=== PATIENT | female | born 1950 | race African-American/Black ===

== ENCOUNTER 2016-10-10 13:31 | Inpatient (IN) | payer MEDICARE, OTHER ==
[~2016-10-10] VITALS: Ht 162.6 cm; Wt 51.3 kg
--- NOTE | 2016-10-10 14:00 | NUR ---
IV ACCESS STARTED.
--- NOTE | 2016-10-10 14:15 | NUR ---
CALLED NURSING SUP. FOR TELE BED
[2016-10-10] MEDS ORDERED: MEMA21CA PO (14:29)
[2016-10-10] MEDS ORDERED: CHOL100044 PO (14:29)
[2016-10-10] MEDS ORDERED: QUET25TA PO (14:29)
[2016-10-10 14:58] LABS: BASOPHILS % (AUTO) 0.7 % (0.0-2.0); EOSINOPHILS % (AUTO) 0.2 % (0.0-6.0); HEMATOCRIT 41 % (33-45); HEMOGLOBIN 13.4 g/dL (11.5-14.8); LYMPHOCYTES # (AUTO) 2.2 /CMM (0.8-4.8); LYMPHOCYTES % (AUTO) 32.2 % (20.0-44.0); MEAN CORPUSCULAR HEMOGLOBIN 28 PG (26.0-33.0); MEAN CORPUSCULAR HGB CONC 33 g/dl (31.0-36.0); MEAN CORPUSCULAR VOLUME 86 fL (82-100); MONOCYTES # (AUTO) 0.5 /CMM (0.1-1.30); MONOCYTES % (AUTO) 8.1 % (2.0-12.0); NEUTROPHILS % (AUTO) 58.8 % (43.0-81.0); PLATELET COUNT (AUTO) 202 /CMM (150-450); RDW COEFFICIENT OF VARIATION 12.7 (11.5-15.0); RED BLOOD CELL COUNT(AUTO) 4.78 MIL/uL (4.0-5.2); WHITE BLOOD COUNT (AUTO) 6.7 K/uL (4.3-11.0)
[2016-10-10] MEDS ORDERED: IV NS 0.9% 1,000 ML BAG IV ONE (15:00)
--- NOTE | 2016-10-10 15:00 | NUR ---
PT TAKEN TO CT.
[2016-10-10 15:07] LABS: CALCIUM, SERUM 9.3 mg/dL (8.5-10.1); CARBON DIOXIDE 31 mmol/L (21-32); CHLORIDE 105 mmol/L (98-107); CREATININE 1.1 mg/dL (0.6-1.3); GLUCOSE 99 mg/dL (74-106); POTASSIUM 4.2 mmol/L (3.5-5.1); SODIUM SERUM 141 mmol/L (136-145); UREA NITROGEN, BLOOD 21 mg/dL (7-18)
[2016-10-10 15:12] LABS: PROTHROMBIN TIME 10.4 SECS (9.5-12.7)
[2016-10-10 15:15] LABS: TROPONIN I < 0.017 ng/mL (0.00-0.056)
[2016-10-10 15:17] LABS: ALANINE AMINOTRANSFERASE 39 U/L (12-78); ALBUMIN 3.8 g/dL (3.4-5.0); ALKALINE PHOSPHATASE 64 U/L (46-116); ASPARTATE AMINOTRANSFERASE 25 U/L (15-37); BILIRUBIN,DIRECT 0.1 mg/dL (0.0-0.2); BILIRUBIN,TOTAL 0.6 mg/dL (0.2-1.0); TOTAL PROTEIN, SERUM 8.8 g/dL (6.4-8.2)
[2016-10-10 15:38] LABS: THYROID STIMULATING HORMONE 1.583 uIU/mL (0.358-3.74)
--- NOTE | 2016-10-10 15:46 | NUR ---
URINE SAMPLE OBTAINED, SENT.
[2016-10-10 15:49] LABS: APPEARANCE,URINE Clear (CLEAR); BILIRUBIN,URINE Negative (NEGATIVE); BLOOD, URINE Negative Ery/uL (NEGATIVE); COLOR,URINE Dark (YELLOW); KETONES,URINE Negative (NEGATIVE); LEUKOCYTE ESTERASE ,URINE Negative (NEGATIVE); NITRITE, URINE Negative (NEGATIVE); PH,URINE 5.5 (5.0-8.0); PROTEIN,URINE Trace mg/dl (NEGATIVE); UGLUCOSE Negative (NEGATIVE); UROBILINOGEN,URINE 0.2 EU/dL (0.2)
--- NOTE | 2016-10-10 16:02 | NUR ---
REPORT GIVEN TO LUCINDA ASTORGA FOR TELE 308-2.
[2016-10-10 16:07] LABS: BACTERIA,URINE Few /HPF (None Seen); RBC,URINE 0-2 /HPF (0-2); SQUAMOUS EPITHELIAL CELL,UR Moderate /HPF (None Seen)
--- NOTE | 2016-10-10 16:13 | NUR ---
SORIN PAGED, LINA COTTO ASSISTANT AT SURGERY
[2016-10-10] MEDS ORDERED: CEFTRIAXONE 1GM BAG (ER ONLY) 1 GM/50 ML PIGGYBACK IV ONE (16:30)
[2016-10-10 17:00] VITALS: BP 117/82
--- NOTE | 2016-10-10 18:39 | NUR ---
RN NOTES RECEIVED PT FROM ER. PT IS AWAKE AND STABLE. PT IS NONVERBAL. NO S/S OF SOB, DISTRESS OR PAIN. PT ARRIVES WITH DAUGHTER AND SON AT BEDSIDE. PT IS ON THE TELE MONITOR SHOWING SINUS RHYTHM. IV ACCESS IS ON THE LEFT FOREARM, 20G, SL. SAFETY MEASURES IN PLACE. WILL ENDORSE TO GUEST RELATIONS REPRESENTATIVE FOR SAW.
[2016-10-10] MEDS ORDERED: Z GUARD REMEDY 2 OZ OINT TP PRN (19:00)
[2016-10-10] MEDS ORDERED: ONDANSETRON HCL/PF 4 MG/2 ML VIAL IVP PRN (19:00)
[2016-10-10] MEDS ORDERED: ACETAMINOPHEN 325 MG TABLET PO PRN (19:00)
--- NOTE | 2016-10-10 19:30 | NUR ---
RN NOTES Received patient in bed, awale and alert, family at bedside, no c/o pain or discomfort at this time. Discussed POC with patient and family, no concerns at this time. Will continue to monitor.
[2016-10-10 20:00] VITALS: BP 117/76
[2016-10-10] MEDS: QUETIAPINE FUMARATE 25 MG TABLET PO SCH (21:20)
[2016-10-10] MEDS: IV NS 0.9% 1,000 ML IV PRN (21:30)
[2016-10-11] VITALS: BP 124/58
[2016-10-11 03:06] LABS: BASOPHILS % (AUTO) 0.2 % (0.0-2.0); EOSINOPHILS % (AUTO) 0.4 % (0.0-6.0); HEMATOCRIT 33 % (33-45); HEMOGLOBIN 11.3 g/dL (11.5-14.8); LYMPHOCYTES # (AUTO) 2.7 /CMM (0.8-4.8); LYMPHOCYTES % (AUTO) 41.1 % (20.0-44.0); MEAN CORPUSCULAR HEMOGLOBIN 29 PG (26.0-33.0); MEAN CORPUSCULAR HGB CONC 34 g/dl (31.0-36.0); MEAN CORPUSCULAR VOLUME 86 fL (82-100); MONOCYTES # (AUTO) 0.6 /CMM (0.1-1.30); MONOCYTES % (AUTO) 9.8 % (2.0-12.0); NEUTROPHILS # (AUTO) 3.2 /CMM (1.8-8.9); NEUTROPHILS % (AUTO) 48.5 % (43.0-81.0); PLATELET COUNT (AUTO) 166 /CMM (150-450); RDW COEFFICIENT OF VARIATION 13.3 (11.5-15.0); RED BLOOD CELL COUNT(AUTO) 3.88 MIL/uL (4.0-5.2); WHITE BLOOD COUNT (AUTO) 6.6 K/uL (4.3-11.0)
[2016-10-11 03:46] LABS: ALBUMIN 2.9 g/dL (3.4-5.0); BILIRUBIN,TOTAL 0.4 mg/dL (0.2-1.0); CALCIUM, SERUM 8.3 mg/dL (8.5-10.1); CREATININE 0.7 mg/dL (0.6-1.3); MAGNESIUM 1.6 mg/dL (1.8-2.4); POTASSIUM 3.5 mmol/L (3.5-5.1); TOTAL PROTEIN, SERUM 6.9 g/dL (6.4-8.2)
[2016-10-11 04:00] VITALS: BP 134/82
[2016-10-11 04:50] LABS: THYROID STIMULATING HORMONE 2.316 uIU/mL (0.358-3.74)
--- NOTE | 2016-10-11 07:00 | NUR ---
RN CLOSING NOTES No significant change in condition during shift. No c/o pain or discomfort. Daughter slept beside the patient. Reminded daughter that she cannot sleep on the bed, verbalized understanding. Will continue to monitor.
--- NOTE | 2016-10-11 07:30 | NUR ---
PHLEBOTOMIST MEDICAL LAB ASSISTANT NOTES PATIENT IN BED, ALERT AND ORIENTED, NO DISTRESS NOTED, TELE MONITOR SHOWS A.FLUTTER, ASYMPTOMATIC, DAUGHTER AT BEDSIDE, PIV ON RFA PATENT AND INTACT, ALL NEEDS ATTENDED, CALL LIGHT WITHIN REACH, WILL CONTINUE TO MONITOR.
[2016-10-11 08:00] VITALS: BP 118/76
[2016-10-11] MEDS: MEMANTINE HCL 5 MG TABLET PO SCH ×2 (08:42→16:23)
[2016-10-11] MEDS: CHOLECALCIFEROL 1,000 UNIT TABLET (VIT D3) PO SCH (08:42)
[2016-10-11] MEDS: IV NS 0.9% 1,000 ML IV PRN (08:54)
[2016-10-11 11:42] VITALS: BP 117/66
[2016-10-11] MEDS: Magnesium 1GM/D5W 100ML PREMIX 100 ML IV SCH ×2 (12:01→13:08)
--- NOTE | 2016-10-11 14:00 | NUR ---
LAP CUTTER NOTES PATIENT SEEN BY DR. LINA COTTO, NO NEW ORDER AT THIS TIME.
[2016-10-11 15:46] VITALS: BP 100/56
[2016-10-11] MEDS ORDERED: CEFTRIAXONE 1 G in IV D5W 50 ML IV SCH (17:00)
--- NOTE | 2016-10-11 18:25 | NUR ---
CHRISTMAS TREE GRADER NOTES PATIENT IN BED, ALERT BUT NON-VERBAL, NO DISTRESS NOTED, BREATHING EVEN AND UNLABORED, TURNED AND REPOSITIONED, PM CARE RENDERED, ALL NEEDS ATTENDED AND MET, PIV ON LFA PATENT AND INTACT, IVF INFUSING AT 75ML/HR AND TOLERATING WELL, CALL LIGHT WITHIN REACH, SAFETY MEASURES IN PLACED, FAMILY AT BEDSIDE, WILL ENDORSE TO 4TH GRADE TEACHER FOR SAW.
--- NOTE | 2016-10-11 19:25 | NUR ---
SENIOR SYSTEMS ARCHITECT OPENING NOTES: RECEIVED PT IN BED WITH FAMILY MEMBERS AT BEDSIDE. PT IS A/OX1 AND IS NON-VERBAL, OPENS EYES. NO DISTRESS NOTED AT THIS TIME. BREATHING EVEN AND UNLABORED. PIV ON LFA PATENT AND INTACT, IVF INFUSING AT 75ML/HR AND TOLERATING WELL, CALL LIGHT WITHIN REACH, SAFETY MEASURES IN PLACED. WILL CONTINUE TO MONITOR PT.
[2016-10-11 20:00] VITALS: BP 152/88
[2016-10-11] MEDS: QUETIAPINE FUMARATE 25 MG TABLET PO SCH (21:32)
[2016-10-12] VITALS: BP 94/63
[2016-10-12] MEDS: IV NS 0.9% 1,000 ML IV PRN (00:36)
[2016-10-12 06:00] VITALS: BP 123/63
[2016-10-12 06:36] LABS: BASOPHILS % (AUTO) 0.3 % (0.0-2.0); EOSINOPHILS # (AUTO) 0.1 /CMM (0.0-0.7); EOSINOPHILS % (AUTO) 1.7 % (0.0-6.0); HEMATOCRIT 30 % (33-45); HEMOGLOBIN 10.1 g/dL (11.5-14.8); LYMPHOCYTES # (AUTO) 2.5 /CMM (0.8-4.8); LYMPHOCYTES % (AUTO) 52.6 % (20.0-44.0); MEAN CORPUSCULAR HEMOGLOBIN 29 PG (26.0-33.0); MEAN CORPUSCULAR HGB CONC 34 g/dl (31.0-36.0); MEAN CORPUSCULAR VOLUME 87 fL (82-100); MONOCYTES # (AUTO) 0.4 /CMM (0.1-1.30); MONOCYTES % (AUTO) 8.6 % (2.0-12.0); NEUTROPHILS # (AUTO) 1.8 /CMM (1.8-8.9); NEUTROPHILS % (AUTO) 36.8 % (43.0-81.0); PLATELET COUNT (AUTO) 151 /CMM (150-450); RDW COEFFICIENT OF VARIATION 13.1 (11.5-15.0); RED BLOOD CELL COUNT(AUTO) 3.46 MIL/uL (4.0-5.2); WHITE BLOOD COUNT (AUTO) 4.8 K/uL (4.3-11.0)
[2016-10-12 07:03] LABS: CALCIUM, SERUM 7.5 mg/dL (8.5-10.1); CREATININE 0.7 mg/dL (0.6-1.3); MAGNESIUM 1.9 mg/dL (1.8-2.4); PHOSPHORUS 3.1 mg/dL (2.5-4.9); POTASSIUM 3.6 mmol/L (3.5-5.1)
--- NOTE | 2016-10-12 07:20 | NUR ---
CUSTOMER ASSOCIATE NOTES PATIENT IN BED, ALERT BUT NON-VERBAL, NO DISTRESS NOTED, BREATHING EVEN AND UNLABORED, TURNED AND REPOSITIONED, NEEDS ATTENDED AND MET, PIV ON LFA PATENT AND INTACT, IVF INFUSING AT 75ML/HR AND TOLERATING WELL, CALL LIGHT WITHIN REACH, SAFETY MEASURES IN PLACED, FAMILY AT BEDSIDE, WILL CONTINUE TO MONITOR.
--- NOTE | 2016-10-12 07:25 | NUR ---
STRETCH MACHINE OPERATOR CLOSING NOTES: ALL NEEDS WERE ATTENDED AND ANTICIPATED FOR. PT IS IN BED RESTING. DAUGHTER AT BEDSIDE. PT IS A/OX1, OPENS EYES, AND IS NON-VERBAL. NO DISTRESS NOTED AT THIS TIME. BREATHING EVEN AND UNLABORED. PT IS ON TELE MONITOR AND IS SR 75. PIV ON LFA PATENT AND INTACT AND IS BEING INFUSED WITH NS 75ML/HR AND TOLERATING WELL. CALL LIGHT WITHIN PT'S REACH. PT KEPT CLEAN, DRY, AND COMFORTABLE. SAFETY MEASURES IN PLACE. ENDORSED TO AM NURSE FOR SAW.
[2016-10-12 07:32] VITALS: BP 123/63
[2016-10-12] MEDS: MEMANTINE HCL 5 MG TABLET PO SCH (08:58)
[2016-10-12] MEDS: CHOLECALCIFEROL 1,000 UNIT TABLET (VIT D3) PO SCH (08:58)
[2016-10-12] MEDS ORDERED: CEPH-569 PO (12:43)
[2016-10-12 13:45] VITALS: BP 127/84
--- NOTE | 2016-10-12 14:20 | NUR ---
BRAKE REPAIRER PATIENT ALERT AND ORIENTED X1, NON-VERBAL, RECEIVED DISCHARGE ORDER FROM DR. LINA COTTO, DAUGHTER RECEIVED DISCHARGE INSTRUCTIONS AND VERBALIZED UNDERSTANDING, INSTRUCTED TO RETURN TO PCP IN 1 WEEK AND TO TAKE MEDICATION PRESCRIBED, PRESCRIPTION FOR KEFLEX GIVEN TO THE PATIENT'S DAUGHTER, SKIN ASSESSMENT COMPLETED, DRY AND INTACT, PATIENT RECEIVED SKIN CARE, BED BATH, PIV ON LFA REMOVED, BELONGINGS RECONCILED, NO VALUABLES ONLY CLOTHES, RECEIVED SIGNATURES FROM DAUGHTER, AND LEFT THE FACILITY VIA PRIVATE CAR, ASSISTED BY HIGH PRESSURE OPERATOR VIA WHEELCHAIR. PATIENT LEFT IN STABLE CONDITION.
== END 2016-10-12 14:20 | disposition home or self-care (01) | DRG 689 ==
LOC: ER 13:33 → TELE 15:52
PROVIDERS: ADMIT Nurse Practitioner Acute Care; ATTEND Nurse Practitioner Acute Care
DX: N39.0 Urinary tract infection, site not specified (principal); G93.41 Metabolic encephalopathy; Z79.899 Other long term (current) drug therapy; E86.0 Dehydration; G30.0 Alzheimer's disease with early onset; F02.80 Dementia in other diseases classified elsewhere, unspecified severity, without behavioral disturbance, psychotic disturbance, mood disturbance, and anxiety; J32.0 Chronic maxillary sinusitis; I67.2 Cerebral atherosclerosis; Z86.19 Personal history of other infectious and parasitic diseases
CPT/HCPCS: 36415; 70450-TC; 71010-TC; 80048-TC; 80053-TC; 80061-TC; 80076-TC; 81000-TC; 82962-TC; 83605-TC; 83735-TC; 84100-TC; 84443-TC; 84484-TC; 85025-TC; 85730-TC; 87040-TC; 87086-TC; 93307-TC; A4606; J0696; J3475; J7030; J7060; Z7610

== ENCOUNTER 2017-09-24 20:09 | Emergency (ER) | payer MEDICARE, OTHER ==
[~2017-09-24] VITALS: Ht 160 cm; Wt 45.4 kg
[~2017-09-24 20:09] MED LIST: CEPH-569 PO; CHOL100044 PO; MEMA21CA PO; QUET25TA PO
--- NOTE | 2017-09-24 20:30 | NUR ---
BIB DAUGHTER. DAUGHTER STATES THAT "HER MOTHER IS ACTING A BIT WEAKER THAN USUAL, SHE HAS ALZHEIMERS AND NORMALLY DOES NOT SPEAK AND IS UNCOOPERATIVE." PT AA/OX0. NO TRAUMA NOTED FROM HEAD TO TOE. AMBULATED TO HOSPITAL BED WITH ASSISTANCE FROM DAUGHTER. ABLE TO MOVE ALL EXTREMITIES. VSS. NAD. AWAITING MD BARNES.
--- NOTE | 2017-09-24 20:55 | NUR ---
LAB AT BEDSIDE
--- NOTE | 2017-09-24 21:02 | NUR ---
EKG AT BEDSIDE.
[2017-09-24 21:04] LABS: BASOPHILS % (AUTO) 0.5 % (0.0-2.0); EOSINOPHILS % (AUTO) 0.4 % (0.0-6.0); HEMATOCRIT 42 % (33-45); HEMOGLOBIN 14.2 g/dL (11.5-14.8); LYMPHOCYTES # (AUTO) 2.5 /CMM (0.8-4.8); LYMPHOCYTES % (AUTO) 42.9 % (20.0-44.0); MEAN CORPUSCULAR HEMOGLOBIN 29 PG (26.0-33.0); MEAN CORPUSCULAR HGB CONC 34 g/dl (31.0-36.0); MEAN CORPUSCULAR VOLUME 87 fL (82-100); MONOCYTES # (AUTO) 0.4 /CMM (0.1-1.30); MONOCYTES % (AUTO) 6.7 % (2.0-12.0); NEUTROPHILS % (AUTO) 49.5 % (43.0-81.0); PLATELET COUNT (AUTO) 152 /CMM (150-450); RDW COEFFICIENT OF VARIATION 12.5 (11.5-15.0); RED BLOOD CELL COUNT(AUTO) 4.82 MIL/uL (4.0-5.2); WHITE BLOOD COUNT (AUTO) 5.9 K/uL (4.3-11.0)
[2017-09-24 21:15] LABS: CALCIUM, SERUM 9.2 mg/dL (8.5-10.1); CARBON DIOXIDE 28 mmol/L (21-32); CHLORIDE 103 mmol/L (98-107); CREATININE 0.7 mg/dL (0.6-1.3); GLUCOSE 90 mg/dL (74-106); POTASSIUM 3.7 mmol/L (3.5-5.1); SODIUM SERUM 138 mmol/L (136-145); UREA NITROGEN, BLOOD 16 mg/dL (7-18)
[2017-09-24 21:19] LABS: INR 0.95 (0.85-1.15)
[2017-09-24 21:23] LABS: TROPONIN I < 0.017 ng/mL (0.00-0.056)
[2017-09-24 21:31] LABS: ALANINE AMINOTRANSFERASE 36 U/L (12-78); ALKALINE PHOSPHATASE 78 U/L (46-116); ASPARTATE AMINOTRANSFERASE 25 U/L (15-37); B-TYPE NATRIURETIC PEPTIDE 151 PG/ML (0-125); BILIRUBIN,DIRECT 0.1 mg/dL (0.0-0.2); BILIRUBIN,TOTAL 0.3 mg/dL (0.2-1.0); TOTAL PROTEIN, SERUM 9.3 g/dL (6.4-8.2)
--- NOTE | 2017-09-24 21:34 | NUR ---
X RAY AT BEDSIDE
[2017-09-24 22:27] LABS: APPEARANCE,URINE CLOUDY (CLEAR); BILIRUBIN,URINE NEGATIVE (NEGATIVE); BLOOD, URINE TRACE Ery/uL (NEGATIVE); COLOR,URINE YELLOW (YELLOW); KETONES,URINE NEGATIVE (NEGATIVE); LEUKOCYTE ESTERASE ,URINE 1+ (NEGATIVE); NITRITE, URINE POSITIVE (NEGATIVE); PROTEIN,URINE NEGATIVE (NEGATIVE); UGLUCOSE NEGATIVE (NEGATIVE)
[2017-09-24 22:44] LABS: BACTERIA,URINE Many /HPF (None Seen); RBC,URINE 0-2 /HPF (0-2); SQUAMOUS EPITHELIAL CELL,UR Moderate /HPF (None Seen); WBC,URINE TOO NUMEROUS TO COUN /HPF (0-3)
--- NOTE | 2017-09-24 23:31 | NUR ---
RESTING COMFORTABLY WITH DAUGHTER AT BEDSIDE
--- NOTE | 2017-09-24 23:31 | NUR ---
Patient is resting comfortably in bed with eyes closed. Easily aroused. VSS
[2017-09-24] MEDS ORDERED: CEFTRIAXONE 1 G VIAL ONE (23:52)
[2017-09-25] MEDS ORDERED: CEFTRIAXONE 1 G in IV D5W 50 ML IV ONE ×2
[2017-09-25 00:31] VITALS: BP 144/70
--- NOTE | 2017-09-25 00:32 | NUR ---
Patient discharged to home in stable condition. Written and verbal after care instructions given. Patient verbalizes understanding of instruction. MD DAIGLE PRESICRIPTION GIVEN. IV removed. Catheter intact and site benign. Pressure and 4x4 applied to site. No bleeding noted. AMBULATORY WITH DAUGHTER'S ASSISTANCE UPON DC.
== END 2017-09-25 00:32 | disposition home or self-care (01) ==
LOC: ER 20:11
DX: R53.1 Weakness (principal); F03.90 Unspecified dementia, unspecified severity, without behavioral disturbance, psychotic disturbance, mood disturbance, and anxiety
CPT/HCPCS: 36415; 71045-TC; 80048-TC; 80076-TC; 81000-TC; 83880; 84484-TC; 85025-TC; 85730-TC; 87086-TC; 87186-TC; A4606; J0696; J7060; Z7610

== ENCOUNTER 2018-09-26 17:24 | Emergency (ER) | payer OTHER ==
[~2018-09-26] VITALS: Ht 152.4 cm; Wt 39.0 kg
--- NOTE | 2018-09-26 18:00 | NUR ---
BIB Caregiver "fell/slif off wheelchair this afternoon. Also is not eating like usual. Unresponsive" Patient non-verbal, daughter at bedside. No resp distress. Changed into gown, attached to the monitor.
[2018-09-26] MEDS ORDERED: IV NS 0.9% 1,000 ML BAG IV ONE (18:30)
[2018-09-26 19:03] LABS: BASOPHILS % (AUTO) 0.5 % (0.0-2.0); EOSINOPHILS % (AUTO) 0.7 % (0.0-6.0); HEMATOCRIT 39 % (33-45); HEMOGLOBIN 12.4 g/dL (11.5-14.8); LYMPHOCYTES # (AUTO) 2.6 /CMM (0.8-4.8); LYMPHOCYTES % (AUTO) 48.6 % (20.0-44.0); MEAN CORPUSCULAR HGB CONC 32 g/dl (31.0-36.0); MEAN CORPUSCULAR VOLUME 93 fL (82-100); MONOCYTES # (AUTO) 0.4 /CMM (0.1-1.30); MONOCYTES % (AUTO) 6.7 % (2.0-12.0); NEUTROPHILS # (AUTO) 2.3 /CMM (1.8-8.9); NEUTROPHILS % (AUTO) 43.5 % (43.0-81.0); PLATELET COUNT (AUTO) 138 /CMM (150-450); RED BLOOD CELL COUNT(AUTO) 4.22 MIL/uL (4.0-5.2); WHITE BLOOD COUNT (AUTO) 5.3 K/uL (4.3-11.0)
--- NOTE | 2018-09-26 19:06 | NUR ---
PT TO [facility]
--- NOTE | 2018-09-26 19:20 | NUR ---
PT RECEIVED FROM RIZWAN ZHOU FOR SAW. DAUGHTER AT BEDSIDE. NAD NOTED. VSS
[2018-09-26 19:22] LABS: BILIRUBIN,DIRECT 0.1 mg/dL (0.0-0.2); BILIRUBIN,TOTAL 0.4 mg/dL (0.2-1.0)
[2018-09-26 19:23] LABS: ALANINE AMINOTRANSFERASE 26 U/L (12-78); ALBUMIN 3.3 g/dL (3.4-5.0); ALKALINE PHOSPHATASE 50 U/L (46-116); ASPARTATE AMINOTRANSFERASE 18 U/L (15-37); SERUM AMMONIA < 11 umol/L (11-32); TOTAL PROTEIN, SERUM 7.3 g/dL (6.4-8.2)
[2018-09-26 19:27] LABS: CARBON DIOXIDE 30 mmol/L (21-32); CHLORIDE 122 mmol/L (98-107)
[2018-09-26 19:28] LABS: CALCIUM, SERUM 8.8 mg/dL (8.5-10.1); GLUCOSE 92 mg/dL (74-106); THYROID STIMULATING HORMONE 1.906 uIU/mL (0.358-3.74); UREA NITROGEN, BLOOD 28 mg/dL (7-18)
[2018-09-26 19:29] LABS: SODIUM SERUM 161 mmol/L (136-145)
[2018-09-26] MEDS ORDERED: ZOLPIDEM TARTRATE 5 MG TABLET PO PRN (21:30)
[2018-09-26] MEDS ORDERED: MAGNESIUM HYDROXIDE 30 ML UDC PO PRN (21:30)
[2018-09-26] MEDS ORDERED: ACETAMINOPHEN 325 MG TABLET PO PRN (21:30)
[2018-09-26] MEDS ORDERED: HYDROCODONE/APAP 5/325MG 1 EACH TABLET PO PRN (21:30)
[2018-09-26] MEDS ORDERED: ONDANSETRON HCL/PF 4 MG/2 ML VIAL IVP PRN (21:30)
[2018-09-26] MEDS ORDERED: Z GUARD REMEDY 2 OZ OINT TP PRN (21:30)
[2018-09-26] MEDS ORDERED: MAG HYDROX/AL HYDROX/SIMETH 30 ML UDC PO PRN (21:30)
[2018-09-26] MEDS ORDERED: IV NS 0.9% 1,000 ML IV PRN (21:30)
[2018-09-26] MEDS ORDERED: POTASSIUM CL. PREMIX PERIPHER. 200 ML ONE (22:05)
[2018-09-26] MEDS: POTASSIUM CL. PREMIX PERIPHER. 50 ML IV SCH ×2 (22:15→23:13)
[2018-09-26 22:25] LABS: CALCIUM, SERUM 8.3 mg/dL (8.5-10.1); CREATININE 0.9 mg/dL (0.6-1.3); POTASSIUM 3.2 mmol/L (3.5-5.1)
--- NOTE | 2018-09-26 23:23 | NUR ---
APPROVED PT TO BE GIVEN APPLE SAUCE
[2018-09-26] MEDS ORDERED: IV 1/2NS 1000 ML 1,000 ML IV ONE (23:30)
--- NOTE | 2018-09-26 23:52 | NUR ---
[facility] CALLED TO GIVE INFORMATION ABOUT TRANSFER. PT GOING TO [facility], TELE BED 414. ACCEPTING PHYSICIAN DR ALSTON. NURSE NAME IS NARCISO. NUMBER FOR REPORT . ETA FOR AMBULANCE 1 HR.
[2018-09-27] MEDS: POTASSIUM CL. PREMIX PERIPHER. 50 ML IV SCH ×2 (00:13→01:15)
--- NOTE | 2018-09-27 00:28 | NUR ---
REPORT GIVEN TO RIZWAN REAGAN OF [employer] OF [facility] FOR SAW. PT TO TELE 414
--- NOTE | 2018-09-27 01:02 | NUR ---
RECEIVED A CALL FROM RIZWAN SMITH FOR VERIFICATION OF REPORT.
--- NOTE | 2018-09-27 02:00 | NUR ---
PT IN BED SLEEPING. NAD NOTED. FAMILY AT BEDSIDE
[2018-09-27 02:40] VITALS: BP 108/71
--- NOTE | 2018-09-27 02:41 | NUR ---
JAY AT BEDSIDE FOR PT TRANSPORT TO [facility]. REPORT GIVEN TO WAN CHRISTINE. NAD NOTED.
== END 2018-09-27 03:06 | disposition short-term general hospital (02) ==
LOC: ER 17:30
DX: S00.83XA Contusion of other part of head, initial encounter (principal); E87.0 Hyperosmolality and hypernatremia; E87.6 Hypokalemia; F03.90 Unspecified dementia, unspecified severity, without behavioral disturbance, psychotic disturbance, mood disturbance, and anxiety; Z79.899 Other long term (current) drug therapy; W05.0XXA Fall from non-moving wheelchair, initial encounter; Y93.89 Activity, other specified; Y92.89 Other specified places as the place of occurrence of the external cause; Y99.8 Other external cause status
CPT/HCPCS: 36415; 70450; 71045; 72125; 80048 ×2; 80076; 82140; 83605; 84443; 84484; 85025; 87040 ×2; 87081; 93005; 96365; 96366 ×2; 99285; J3480; J3490; J7030